=== PATIENT | male | born 1990 | race Caucasian/White ===

== ENCOUNTER 2019-04-27 18:25 | Emergency (ER) | payer OTHER, SELFPAY ==
[2019-04-27 18:37] VITALS: BP 122/83; PULSE 62; RESP 16; TEMP 36.6; O2SAT 95
[2019-04-27 19:09] LABS: Add Manual Diff / Slide Review NO; Basophils Absolute Auto 100 /uL (0-100); Basophils Percent Auto 0.6 % (0-2); Eosinophils Absolute Auto 100 /uL (0-450); Eosinophils Percent Auto 1.3 % (2-4); Hematocrit 45.1 % (41-53); Hemoglobin 15.4 g/dL (13.5-17.5); Lymphocytes Absolute Auto 1400 /uL (1100-4500); Lymphocytes Percent Auto 12.3 % (25-40); Mean Corpuscular HGB Conc 34.2 % (30-36); Mean Corpuscular Hemoglobin 30.9 PG (26-34); Mean Corpuscular Volume 90.2 fL (80-100); Monocytes Absolute Auto 600 /uL (0-900); Monocytes Percent Auto 5.8 % (3-14); Neutrophils Absolute Auto 9000 /uL (1500-7000); Platelet Count 246 X10^3/uL (150-400); Red Cell Distribution Width 13.2 % (11.6-14.8); White Blood Cell Count 11.2 X10^3/uL (4.5-11.0)
[2019-04-27 19:18] LABS: INR 0.9 (0.9-1.3); Prothrombin Time 10.8 SECONDS (10.1-12.7)
[2019-04-27 19:21] LABS: PTT Partial Thromboplastin Tim 30 SECONDS (26.4-36.2)
[2019-04-27 19:22] LABS: Alanine Aminotransferase 48 IU/L (21-72); Albumin 4.4 g/dL (3.5-5.0); Albumin Globulin Ratio 1.4 (1.0-2.8); Alkaline Phosphatase 45 U/L (38-126); Aspartate Aminotransferase 55 IU/L (17-59); BUN Creatinine Ratio 23.8 (6-22); Bilirubin Total 0.5 mg/dL (0.2-1.3); Blood Urea Nitrogen 19 mg/dL (9-20); Calcium 9.5 mg/dL (8.4-10.2); Carbon Dioxide 32 mmol/L (22-32); Chloride 98 mmol/L (98-107); Estimated Glomerular Filt Rate > 60.0 mL/min (>60); Globulin 3.2 g/dL (1.7-4.1); Glucose 133 mg/dL (70-100); HEMOLYSIS < 15 (0-50); Lipase 33 U/L (23-300); Potassium 3.7 mmol/L (3.4-5.1); Sodium 140 mmol/L (137-145); Total Protein 7.6 g/dL (6.3-8.2)
--- NOTE | 2019-04-27 19:22 | ED_ITS ---
HPI - Abdominal Pain General Chief Complaint: Abdominal Pain Stated Complaint: pain in stomach with vomiting and diarrhea Time Seen by Provider: 04/27/19 19:22 Source: patient Mode of arrival: ambulatory Limitations: no limitations History of Present Illness HPI narrative: Patient is a 29-year-old male who for the past several days has had left-sided abdominal tenderness. He also has developed multiple episodes of vomiting and diarrhea. Her earlier today he felt like his symptoms worsen. [place] [employer] [place] did a x-ray. This was not available for review. They started him on MiraLax. He states that throughout the rest the day he is felt like he needed to have a bowel movement but can't. Has fairly significant left-sided abdominal tenderness. No recent travel. No recent antibiotics use. No prior abdominal surgeries. Related Data Previous Rx's Medication Instructions Recorded acetaminophen-codeine 1 tab PO Q4-6H PRN #7 tab 04/27/19 [Tylenol-Codeine #3] ondansetron 4 mg PO Q6-8H PRN #10 tab 04/27/19 Allergies Allergy/AdvReac Type Severity Reaction Status Date / Time No Known Drug Allergies Allergy Verified 04/27/19 18:37 Review of Systems Constitutional Denies fever(s) and Denies headache(s) ENT Ears, Nose, Mouth, and Throat: Denies headache(s) Cardiovascular Denies chest pain and Denies dyspnea Respiratory Denies dyspnea Gastrointestinal Gastrointestinal: Reports abdominal pain, Reports change in stool character, Reports nausea and Reports vomiting Genitourinary Denies dysuria Musculoskeletal Denies myalgias and Denies arthralgias Integumentary/Breasts Denies lesions and Denies rash Neurologic Denies headache(s) Hematologic/Lymphatic Denies easy bleeding and Denies easy bruising Allergic/Immunologic Denies urticaria [facility] Medical History Patient denies medical problems (Acute) Surgical History No pertinent past surgical history (Acute) Social History Smoking Status: Current every day smoker Social History Smoking Status: Current every day smoker Exam Initial Vital Signs Initial Vital Signs: Vital Signs Temperature 97.9 F 04/27/19 18:37 Pulse Rate 62 04/27/19 18:37 Respiratory Rate 16 04/27/19 18:37 Blood Pressure 122/83 04/27/19 18:37 Pulse Oximetry 95 04/27/19 18:37 Const General: cooperative, well developed, well groomed and No acute distress Orientation: alert and awake HENMT Head: normal to inspection and normocephalic Resp Effort & Inspection: normal respiratory effort Auscultation: clear to auscultation bilaterally Cardio Rate: regular rate Rhythm: regular rhythm GI Inspection: non-distended Palpation: soft, No firm, No guarding and tender (Left-sided abdomen) Skin Lesions: no lesions Rashes: no rashes Neuro General: alert and awake Cognition: normal cognition Speech: speech normal Extrem General: normal to inspection and capillary refill normal Course Orders Ordered: ED Orders 04/27/19 18:42 EKG-12 Lead Stat 04/27/19 18:50 Complete Blood Count AUTO DIFF Stat Comprehensive Metabolic Panel Stat Lipase Stat Partial Thromboplastin Time Stat Prothrombin Time INR Stat 04/27/19 19:34 CT abdomen pelvis w con Stat Discontinued Medications Acetaminophen/Codeine Phosphate (Tylenol #3 Prepack) 1 bottle MISC SEEINSTR ONE Stop: 04/27/19 21:03 Last Admin: 04/27/19 21:21 Dose: 1 bottle Sodium Chloride (Normal Saline 0.9%) 1,000 mls @ 1,000 mls/hr IV BOLUS ONE Stop: 04/27/19 20:33 Last Infusion: 04/27/19 20:53 Dose: 0 mls/hr Admin: 04/27/19 19:45 Dose: 1,000 mls/hr Morphine Sulfate (Morphine) 4 mg IV NOW ONE Stop: 04/27/19 19:34 Last Admin: 04/27/19 19:43 Dose: 4 mg Ondansetron HCl (Zofran) 4 mg IV NOW ONE Stop: 04/27/19 19:34 Last Admin: 04/27/19 19:43 Dose: 4 mg Ondansetron HCl (Zofran Odt Prepack) 1 bottle MISC SEEINSTR ONE Stop: 04/27/19 21:03 Last Admin: 04/27/19 21:21 Dose: 1 bottle Vital Signs - 8 hr 04/27/19 18:37 04/27/19 21:23 Temperature 97.9 F Pulse Rate 62 69 Respiratory Rate 16 15 Blood Pressure 122/83 118/77 Pulse Oximetry 95 96 MDM - Abdominal Pain Lab Data Attestation: I reviewed the patient's lab results. Result diagrams: 04/27/19 18:50 04/27/19 18:50 Lab Results 04/27/19 04/27/19 04/27/19 Range/Units 18:50 18:50 18:50 WBC 11.2 H (4.5-11.0) X10^3/uL RBC 5.00 (4.5-5.9) X10^6/uL Hgb 15.4 (13.5-17.5) g/dL Hct 45.1 (41-53) % MCV 90.2 (80-100) fL MCH 30.9 (26-34) PG MCHC 34.2 (30-36) % RDW 13.2 (11.6-14.8) % Plt Count 246 (150-400) X10^3/uL Neut % (Auto) 80.0 H (50-75) % Lymph % (Auto) 12.3 L (25-40) % [place] % (Auto) 5.8 (3-14) % Eos % (Auto) 1.3 L (2-4) % Baso % (Auto) 0.6 (0-2) % Neut # (Auto) 9000 H (2996-2570) /uL Lymph # (Auto) 1400 (2922-7808) /uL [place] # (Auto) 600 (0-900) /uL Eos # (Auto) 100 (0-450) /uL Baso # (Auto) 100 (0-100) /uL PT 10.8 (10.1-12.7) SECONDS INR 0.9 (0.9-1.3) APTT 30 (26.4-36.2) SECONDS Sodium 140 (137-145) mmol/L Potassium 3.7 (3.4-5.1) mmol/L Chloride 98 (98-107) mmol/L Carbon Dioxide 32 (22-32) mmol/L BUN 19 (9-20) mg/dL Creatinine 0.80 (0.66-1.25) mg/dL Estimated GFR > 60.0 (>60) mL/min BUN/Creatinine Ratio 23.8 H (6-22) Glucose 133 H (70-100) mg/dL Calcium 9.5 (8.4-10.2) mg/dL Total Bilirubin 0.5 (0.2-1.3) mg/dL AST 55 (17-59) IU/L ALT 48 (21-72) IU/L Alkaline Phosphatase 45 (38-126) U/L Total Protein 7.6 (6.3-8.2) g/dL Albumin 4.4 (3.5-5.0) g/dL Globulin 3.2 (1.7-4.1) g/dL Albumin/Globulin Ratio 1.4 (1.0-2.8) Lipase 33 (23-300) U/L Imaging Data CT scan - abdomen: Radiologist's impression: [address] [address] [address] Scan Report Signed Patient: Mark Lamb JMR#: [id number] : 1990Acct:[id number] Age/Sex: MDate of Service: 04/27/19 Loc: ED Accession Number: [id number] Procedure: CT abdomen pelvis w con Ordering Provider: Blaine Peraza D.O. PROCEDURE: CT ABDOMEN PELVIS W CON INDICATIONS: Left-sided abdominal pain TECHNIQUE: After the administration of intravenous contrast, 5 mm thick sections acquired from the diaphragm to the symphysis. 5 mm coronal and sagittal reformats were acquired. For radiation dose reduction, the following was used: automated exposure control, adjustment of mA and/or kV according to patient size. COMPARISON: None. FINDINGS: Image quality: Excellent. ABDOMEN: Lung bases: Lung bases are clear. Heart size is normal. Solid organs: Liver is normal in size and enhancement. Gallbladder unremarkable. Biliary system is non dilated. Pancreas enhances normally. Spleen is normal in size and enhancement. No adrenal nodules. Kidneys demonstrate normal size and enhancement, without hydronephrosis. Peritoneum and bowel: There is diffuse long segment wall thickening primarily involving the descending colon. There is minimal adjacent fat stranding. There are also a few scattered small bowel loops with mural thickening for example image 40 series 2. No free fluid or air. The appendix is within normal limits Nodes and vessels: No retroperitoneal or mesenteric adenopathy by size criteria. Aorta and inferior vena cava are normal in size. Miscellaneous: No ventral hernias. PELVIS: Genitourinary: Bladder wall thickness is normal. Miscellaneous: No inguinal hernias or adenopathy. Bones: No suspicious bony lesions. No vertebral body compression fractures. IMPRESSION: Diffuse long segment descending colonic wall thickening in addition to a few small bowel loops with mural thickening. Findings likely represent infectious or inflammatory enterocolitis. Elsewhere, no acute abnormality seen. Dictated by: Ming Miller M.D. on 04/27/2019 at 20:06 Approved by: Ming Miller M.D. on 04/27/2019 at 20:09 ECG Data Attestation: I personally reviewed and interpreted this ECG as follows: Prior ECG tracings: not available for review Interpretation: Sinus bradycardia Ventricular rate of 59 Normal axis Normal QRS Normal QTC No ST T wave changes MDM Narrative Medical decision making narrative: CT scan shows no emergent surgical pathology. Shows what appears to be an inflammatory colitis. He is afebrile. Will hold on any antibiotics. Will send home with symptom treatment. We did discuss his CT scan findings. No indication for admission to the hospital. He was given return precautions. He expressed understanding and agreement with plan. Discharge Plan Departure Patient Disposition: Home Clinical Impression: Colitis Abdominal pain Qualifiers: Abdominal location: left lower quadrant Qualified Code(s): R10.32 - Left lower quadrant pain Discharge Date/Time: 04/27/19 21:24 Interventions: ED Discharge Assessment Last Done: 04/27/19 21:23 Instructions: DI for Abdominal Pain-Adult Activity Restrictions/Additional Instructions: Take the medications as directed. Tomorrow keep your appointment with your primary provider. Return to the emergency department for any new or worsening symptoms like we discussed. Prescriptions: New acetaminophen-codeine [Tylenol-Codeine #3] 300-30 mg tablet 1 tab PO Q4-6H PRN (Reason: pain) Qty: 7 RF: 0 ondansetron 4 mg tablet,disintegrating 4 mg PO Q6-8H PRN (Reason: nausea and vomiting) Qty: 10 RF: 0 Stand Alone Forms: Work Release Note
--- NOTE | 2019-04-27 19:34 | DI.CT.S_ITS ---
PROCEDURE: CT ABDOMEN PELVIS W CON INDICATIONS: Left-sided abdominal pain TECHNIQUE: After the administration of intravenous contrast, 5 mm thick sections acquired from the diaphragm to the symphysis. 5 mm coronal and sagittal reformats were acquired. For radiation dose reduction, the following was used: automated exposure control, adjustment of mA and/or kV according to patient size. COMPARISON: None. FINDINGS: Image quality: Excellent. ABDOMEN: Lung bases: Lung bases are clear. Heart size is normal. Solid organs: Liver is normal in size and enhancement. Gallbladder unremarkable. Biliary system is non dilated. Pancreas enhances normally. Spleen is normal in size and enhancement. No adrenal nodules. Kidneys demonstrate normal size and enhancement, without hydronephrosis. Peritoneum and bowel: There is diffuse long segment wall thickening primarily involving the descending colon. There is minimal adjacent fat stranding. There are also a few scattered small bowel loops with mural thickening for example image 40 series 2. No free fluid or air. The appendix is within normal limits Nodes and vessels: No retroperitoneal or mesenteric adenopathy by size criteria. Aorta and inferior vena cava are normal in size. Miscellaneous: No ventral hernias. PELVIS: Genitourinary: Bladder wall thickness is normal. Miscellaneous: No inguinal hernias or adenopathy. Bones: No suspicious bony lesions. No vertebral body compression fractures. IMPRESSION: Diffuse long segment descending colonic wall thickening in addition to a few small bowel loops with mural thickening. Findings likely represent infectious or inflammatory enterocolitis. Elsewhere, no acute abnormality seen. Dictated by: Ming Miller M.D. on 04/27/2019 at 20:06 Approved by: Ming Miller M.D. on 04/27/2019 at 20:09
[2019-04-27] MEDS: ONDANSETRON 4 MG/2 ML INJ IV (19:43)
[2019-04-27] MEDS: MORPHINE 4 MG/ML INJ IV (19:43)
[2019-04-27] MEDS: SODIUM CHLORIDE 0.9% 1,000 ML 1000 ML IV (19:45)
[2019-04-27] MEDS: CODEINE/APAP 30/300 PREPACK 1 BOTTLE MISC (21:21)
[2019-04-27] MEDS: ONDANSETRON 4 MG ODT PREPACK 1 BOTTLE MISC (21:21)
[2019-04-27 21:23] VITALS: BP 118/77; PULSE 69; RESP 15; O2SAT 96
== END 2019-04-27 21:24 | disposition home or self-care (01) ==
PROVIDERS: Emergency Provider Emergency Medicine
DX: K52.9 Noninfective gastroenteritis and colitis, unspecified (principal); R10.9 Unspecified abdominal pain; R00.1 Bradycardia, unspecified
CPT/HCPCS: 36591; 74177; 80053; 83690; 85025; 85610; 85730; 93005; 96361; 96374; 96375; 99283; 99285; J2270; J2405; Q9967

== ENCOUNTER 2019-07-01 16:28 | Emergency (ER) | payer OTHER, SELFPAY ==
[2019-07-01 16:34] VITALS: BP 145/78; PULSE 90; RESP 20; TEMP 36.6; O2SAT 98
[2019-07-01 16:36] VITALS: BP 148/75; PULSE 90; RESP 20; TEMP 36.6; O2SAT 98
--- NOTE | 2019-07-01 16:38 | ED_ITS ---
HPI - Extremity Injury (Lower) <Flora Narayanan PA-C - Last Filed: 07/01/19 19:33> General Chief Complaint: Extremity Injury, Lower Stated Complaint: Right ankle injury playing foot ball Time Seen by Provider: 07/01/19 16:37 Source: patient Mode of arrival: ambulatory Limitations: physical limitation History of Present Illness HPI Narrative: This 29-year-old male jumped up to catch a football about 2 hours ago and came down on his left foot and ankle awkwardly, heard a loud snap. Since then, unable to move the foot due to severe pain. He thinks he came down ?diagonally on the foot, more on the toes ?and then rolled outward. He denies any other injury, denies pain in the knee or upper leg, states pain radiates from the foot up into the lower ankle and lateral lyles area. He last had water about 2 hours ago, ate at 10:00 a.m.. Related Data Previous Rx's Medication Instructions Recorded acetaminophen-codeine 1 tab PO Q4-6H PRN #7 tab 04/27/19 [Tylenol-Codeine #3] ondansetron 4 mg PO Q6-8H PRN #10 tab 04/27/19 ibuprofen 800 mg PO Q8H PRN #30 tab 07/01/19 oxycodone-acetaminophen [Percocet] 1 tab PO Q4-6H PRN #5 tab 07/01/19 Allergies Allergy/AdvReac Type Severity Reaction Status Date / Time No Known Drug Allergies Allergy Verified 04/27/19 18:37 Review of Systems <Flora Narayanan PA-C - Last Filed: 07/01/19 19:33> Review of Systems ROS Unobtainable: All systems reviewed & are unremarkable except as noted in HPI and below PFSH <Flora Narayanan PA-C - Last Filed: 07/01/19 19:33> Medical History Patient denies medical problems (Acute) Surgical History No pertinent past surgical history (Acute) Social History Smoking Status: Current every day smoker Social History Smoking Status: Current every day smoker Exam <Flora Narayanan PA-C - Last Filed: 07/01/19 19:33> Narrative Exam Narrative: GENERAL APPEARANCE: Patient sitting comfortably, in no distress. LUNGS: Clear to auscultation bilaterally. HEART: Rate and rhythm regular without murmur, normal S1 and S2, no S3 or S4. MUSCULOSKELETAL: Tender throughout the right foot and ankle, nonlocalized. Effusion over the right proximal foot and ankle noted more on the lateral side. Patient holds the ankle deviated medially, will not perform ROM secondary to tenderness, he is able to slightly dorsiflex and plantar flex the toes with strength intact against resistance, tender with this action. Achilles is intact by palpation. No tenderness over the lower leg or knee NEUROVASCULAR: Right foot is warm and pink with 2+ pedal pulse, sensation grossly intact Initial Vital Signs Initial Vital Signs: Vital Signs Temperature 97.8 F 07/01/19 16:34 Pulse Rate 90 07/01/19 16:34 Respiratory Rate 20 07/01/19 16:34 Blood Pressure 145/78 H 07/01/19 16:34 Pulse Oximetry 98 07/01/19 16:34 <Jim Smith DO - Last Filed: 07/02/19 07:33> Initial Vital Signs Initial Vital Signs: Vital Signs Temperature 97.8 F 07/01/19 16:34 Pulse Rate 90 07/01/19 16:34 Respiratory Rate 20 07/01/19 16:34 Blood Pressure 145/78 H 07/01/19 16:34 Pulse Oximetry 98 07/01/19 16:34 Course <Flora Narayanan PA-C - Last Filed: 07/01/19 19:33> Orders Ordered: Discontinued Medications Ibuprofen (Advil) 800 mg PO NOW ONE Stop: 07/01/19 16:45 Last Admin: 07/01/19 16:52 Dose: 800 mg Oxycodone/Acetaminophen (Percocet 5/325) 2 tab PO NOW ONE Stop: 07/01/19 16:45 Last Admin: 07/01/19 16:52 Dose: 2 tab Vital Signs - 8 hr 07/01/19 16:34 07/01/19 16:36 07/01/19 18:02 Temperature 97.8 F 97.8 F Pulse Rate 90 90 68 Respiratory Rate 20 20 15 Blood Pressure 148/75 H Blood Pressure [Left Arm] 145/78 H 118/66 Pulse Oximetry 98 98 100 <Jim Smith DO - Last Filed: 07/02/19 07:33> Orders Ordered: Discontinued Medications Ibuprofen (Advil) 800 mg PO NOW ONE Stop: 07/01/19 16:45 Last Admin: 07/01/19 16:52 Dose: 800 mg Oxycodone/Acetaminophen (Percocet 5/325) 2 tab PO NOW ONE Stop: 07/01/19 16:45 Last Admin: 07/01/19 16:52 Dose: 2 tab Vital Signs - 8 hr 07/01/19 16:34 07/01/19 16:36 07/01/19 18:02 Temperature 97.8 F 97.8 F Pulse Rate 90 90 68 Respiratory Rate 20 20 15 Blood Pressure 148/75 H Blood Pressure [Left Arm] 145/78 H 118/66 Pulse Oximetry 98 98 100 MDM - Extremity Injury (Lower) <Flora Narayanan PA-C - Last Filed: 07/01/19 19:33> Imaging Data foot and ankle: Radiologist's impression: [place] [address] XRay Report Signed Patient: Mark Lamb JMR#: [id number] : 1990Acct:[id number] Age/Sex: 29 / MDate of Service: 07/01/19 Loc: ED Accession Number: [id number] Procedure: XR ankle RT min 3V Ordering Provider: Jim Smith D.O. PROCEDURE: XR ANKLE RT MIN 3V INDICATIONS: injury with swelling TECHNIQUE: 3 views of the ankle were acquired. COMPARISON: None. FINDINGS: Bones: There is a nondisplaced fifth metatarsal base fracture. No additional fractures are present. There is no dislocation. Ankle mortise is normally aligned. No suspicious bony lesions. Soft tissues: There may be a small tibiotalar joint effusion. Prominent soft tissue swelling along the lateral aspect of the ankle is present. IMPRESSION: 1. Nondisplaced fifth metatarsal base fracture. 2. Soft tissue swelling overlying the lateral aspect of the ankle. Dictated by: Young Cervantes M.D. on 07/01/2019 at 16:15 Approved by: Young Cervantes M.D. on 07/01/2019 at 16:[address] [address] XRay Report Signed Patient: Mark Lamb JMR#: [id number] : 1990Acct:[id number] Age/Sex: 29 / MDate of Service: 07/01/19 Loc: ED Accession Number: [id number] Procedure: XR foot RT min 3V Ordering Provider: Flora Narayanan P.A-C PROCEDURE: XR FOOT RT MIN 3V INDICATIONS: pain after fall, deformity TECHNIQUE: 3 views of the foot were acquired. COMPARISON: [facility], CR, XR ANKLE RT MIN 3V, 07/01/2019, 17:02. FINDINGS: Bones: There is a nondisplaced fracture involving the base of the fifth metatarsal. No additional fractures are present. No suspicious osseous lesions are identified. Mild degenerative changes are present involving the first metatarsophalangeal joint. Soft tissues: There is a small ankle effusion. Prominent soft tissue swelling about the lateral margin of the ankle is present. IMPRESSION: 1. Nondisplaced fifth metatarsal base fracture. 2. Prominent soft tissue swelling of the lateral aspect of the ankle. Discharge Plan Departure Patient Disposition: Home Clinical Impression: Fracture of fifth metatarsal bone of right foot Qualifiers: Encounter type: initial encounter Fracture type: closed Fracture alignment: nondisplaced Qualified Code(s): S92.354A - Nondisplaced fracture of fifth metatarsal bone, right foot, initial encounter for closed fracture Discharge Date/Time: 07/01/19 18:40 Interventions: ED Discharge Assessment Last Done: 07/01/19 18:40 Instructions: DI for Foot Fracture, DI for Ankle Sprain Activity Restrictions/Additional Instructions: As we talked about, you should return if you have any acutely worsening symptoms over the weekend. It was difficult to examine your foot and ankle today due to your acute swelling and pain. You do have a small break on the outside bone of your foot. It is not out of place. You do not have any apparent ankle break but given the mechanism you likely sprained that ankle as well. You should be in the walking boot whenever you are bearing weight, and also use the crutches as needed. Take ibuprofen 800 mg every 8 hours, and you can take oxy codone/acetaminophen as needed for tonight and tomorrow for the acute pain. Please follow up with your primary care provider in a few days to reassess when the acute pain and swelling are down. You may need repeat x-rays or further studies in a week or so not improving as expected Prescriptions: New ibuprofen 800 mg tablet 800 mg PO Q8H PRN (Reason: pain) Qty: 30 RF: 0 oxycodone-acetaminophen [Percocet] 5-325 mg tablet 1 tab PO Q4-6H PRN (Reason: acute foot fracture pain) Qty: 5 RF: 0 No Action acetaminophen-codeine [Tylenol-Codeine #3] 300-30 mg tablet 1 tab PO Q4-6H PRN (Reason: pain) Qty: 7 RF: 0 ondansetron 4 mg tablet,disintegrating 4 mg PO Q6-8H PRN (Reason: nausea and vomiting) Qty: 10 RF: 0 Referrals: [facility] [Provider Group] Stand Alone Forms: Work Release Note <Jim Smith DO - Last Filed: 07/02/19 07:33> Cosign ED Attending Adeolaature Attestation: I was immediately available in the department for consultation. Documentation has been reviewed. I agree with assessment and plan.
--- NOTE | 2019-07-01 16:44 | DI.RAD.S_ITS ---
PROCEDURE: XR FOOT RT MIN 3V INDICATIONS: pain after fall, deformity TECHNIQUE: 3 views of the foot were acquired. COMPARISON: [facility], CR, XR ANKLE RT MIN 3V, 07/01/2019, 17:02. FINDINGS: Bones: There is a nondisplaced fracture involving the base of the fifth metatarsal. No additional fractures are present. No suspicious osseous lesions are identified. Mild degenerative changes are present involving the first metatarsophalangeal joint. Soft tissues: There is a small ankle effusion. Prominent soft tissue swelling about the lateral margin of the ankle is present. IMPRESSION: 1. Nondisplaced fifth metatarsal base fracture. 2. Prominent soft tissue swelling of the lateral aspect of the ankle. Dictated by: Young Cervantes M.D. on 07/01/2019 at 16:14 Approved by: Young Cervantes M.D. on 07/01/2019 at 16:15
[2019-07-01] MEDS: OXYCODONE/ACETAMINOPHEN 5/325 TABLET 2 TAB PO (16:52)
[2019-07-01] MEDS: IBUPROFEN 400 MG TABLET 800 MG PO (16:52)
[2019-07-01 18:02] VITALS: BP 118/66; PULSE 68; RESP 15; O2SAT 100
== END 2019-07-01 18:40 | disposition home or self-care (01) ==
PROVIDERS: Emergency Provider Internal Medicine
DX: S92.354A Nondisplaced fracture of fifth metatarsal bone, right foot, initial encounter for closed fracture (principal); X50.9XXA Other and unspecified overexertion or strenuous movements or postures, initial encounter; Y93.61 Activity, american tackle football
CPT/HCPCS: 73610; 73630; 99283

== ENCOUNTER 2019-07-07 10:26 | Emergency (ER) | payer OTHER, SELFPAY ==
[2019-07-07 10:33] VITALS: BP 145/68; PULSE 85; RESP 16; TEMP 36.5; O2SAT 100
--- NOTE | 2019-07-07 11:14 | ED.LOWEXIN ---
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 Approximately 1 week ago he sustained a fracture to his right foot. Was seen here in this emergency department. Was sent home with crutches and a walking boot. Since then he has seen his medical department over on the [facility]. He also seen Orthopedics on the [facility]. He had repeat x-rays at that facility. Per his report he was told that he has a non operative fracture. He stated that he was told by Orthopedics that he could start to put some weight on his foot as tolerated. He arrives today with a walking boot and crutches. He states that he has not had any pain medication for the past couple days because he was only given a prescription for 5 tablets by his medical department. Related Data Home Medications Medication Instructions Recorded Confirmed acetaminophen 650 mg PO QID PRN 07/07/19 07/07/19 hydrocodone-acetaminophen 1 tab PO BID PRN 07/07/19 07/07/19 Previous Rx's Medication Instructions Recorded ibuprofen 800 mg PO Q8H PRN #30 tab 07/01/19 oxycodone-acetaminophen [Percocet] 1 tab PO Q4-6H PRN #20 tab 07/07/19 Allergies Allergy/AdvReac Type Severity Reaction Status Date / Time No Known Drug Allergies Allergy Verified 07/07/19 10:36 Review of Systems Constitutional Denies fever(s) Cardiovascular Denies chest pain and Denies dyspnea Respiratory Denies dyspnea Gastrointestinal Gastrointestinal: Denies abdominal pain, Denies nausea and Denies vomiting Musculoskeletal Denies tingling Comments: Right foot pain Integumentary/Breasts Comments: Bruising to the right foot Neurologic Denies tingling Hematologic/Lymphatic Denies easy bleeding and Denies easy bruising PFSH Medical History Patient denies medical problems (Acute) Social History Smoking Status: Current every day smoker Exam Initial Vital Signs Initial Vital Signs: Vital Signs Temperature 97.7 F 07/07/19 10:33 Pulse Rate 85 07/07/19 10:33 Respiratory Rate 16 07/07/19 10:33 Blood Pressure 145/68 H 07/07/19 10:33 Pulse Oximetry 100 07/07/19 10:33 Const General: cooperative, well developed and well groomed Orientation: alert, awake and oriented x3 HENMT Head: normal to inspection and normocephalic Resp Effort & Inspection: normal respiratory effort Cardio Pulses: radial pulses present on the right Skin Other: Patient with bruising on the lateral aspect of the right ankle. Bruising along the toes. Swelling of the right foot. Some mild bruising proximal to the ankle laterally. Neuro Other: Sensation intact to light touch right foot Extrem Other: Tenderness to palpation of the right foot the right ankle in the distal portion of the right lower extremity Psych Appearance: grossly normal and well kempt Course Orders Ordered: Discontinued Medications Hydromorphone HCl (Dilaudid) 1 mg IM NOW ONE Stop: 07/07/19 11:15 Last Admin: 07/07/19 11:21 Dose: 1 mg Vital Signs - 8 hr 07/07/19 10:33 07/07/19 12:06 Temperature 97.7 F Pulse Rate 85 74 Respiratory Rate 16 14 Blood Pressure 145/68 H 127/74 Pulse Oximetry 100 98 [facility] - Extremity Injury (Lower) Medical Records Attestation: I reviewed the patient's medical records. [facility] Narrative Medical decision making narrative: Patient has no signs of compartment syndrome. Is neurovascularly intact. His foot appears is what I would expect to look like 1 week after this injury. He has a walking boot and also crutches. I do suspect that his symptoms are the result of not having proper pain control. He stated he only received 5 pills of medication here in the emergency department and then another 5 pills by his medical department. He was given medicines here in the ER. Will send home with a prescription for more medicines. He has already [place] Will hold on further workup. Was given return precautions and follow-up instructions. He expressed understanding and agreement plan. Discharge Plan Departure Patient Disposition: Home Clinical Impression: Fracture of fifth metatarsal bone of right foot Qualifiers: Encounter type: subsequent encounter Fracture type: closed Discharge Date/Time: 07/07/19 12:06 Interventions: ED Discharge Assessment Last Done: 07/07/19 12:06 Instructions: DI for Foot Fracture Activity Restrictions/Additional Instructions: Recommend that you continue all of the instructions given to you by your medical department and [place]. Take the pain medications as directed. On Wednesday contact your medical department for follow-up. Return to the emergency department for any new or worsening symptoms Prescriptions: New oxycodone-acetaminophen [Percocet] 5-325 mg tablet 1 tab PO Q4-6H PRN (Reason: pain) Qty: 20 RF: 0 No Action acetaminophen 325 mg tablet 650 mg PO QID PRN (Reason: pain) RF: 0 hydrocodone-acetaminophen 5-325 mg tablet 1 tab PO BID PRN (Reason: pain) RF: 0 ibuprofen 800 mg tablet 800 mg PO Q8H PRN (Reason: pain) Qty: 30 RF: 0
[2019-07-07] MEDS: HYDROMORPHONE 1 MG INJ IM (11:21)
[2019-07-07 12:06] VITALS: BP 127/74; PULSE 74; RESP 14; O2SAT 98
== END 2019-07-07 12:06 | disposition home or self-care (01) ==
PROVIDERS: Emergency Provider Emergency Medicine
DX: S92.911A Unspecified fracture of right toe(s), initial encounter for closed fracture (principal)
CPT/HCPCS: 96372; 99282; J1170

== ENCOUNTER 2020-01-09 18:39 | Emergency (ER) | payer OTHER, SELFPAY ==
[2020-01-09 18:43] VITALS: BP 138/89; PULSE 67; RESP 20; TEMP 36.6; O2SAT 98
[2020-01-09] MEDS: ONDANSETRON 4 MG ODT SL ×2 (19:00→21:20)
[2020-01-09] MEDS: KETOROLAC 60 MG/2 ML VIAL 30 MG IM (19:01)
--- NOTE | 2020-01-09 19:27 | ED.HA ---
HPI - Headache <MARISSA Nelson - Last Filed: 01/09/20 21:12> General Chief Complaint: Headache Stated Complaint: states migraine Time Seen by Provider: 01/09/20 18:49 Mode of arrival: Ambulatory History of Present Illness HPI Narrative: 29-year-old male with a history of migraines presents to the emergency department complaining of a migraine on the right side for the past 4 hours with phonophobia, photophobia, nausea, and vomiting. He states this is similar to his headache in the past. Patient states he has tried p.o. Excedrin at home but often vomits this up. Patient denies any abdominal pain, vision changes, neck pain, change in speech, chest pain, shortness of breath, diarrhea, or other concerns. Patient states he usually gets ketorolac which helps with his pain. NO head trauma. Related Data Home Medications Medication Instructions Recorded Confirmed acetaminophen 650 mg PO QID PRN 07/07/19 07/07/19 hydrocodone-acetaminophen 1 tab PO BID PRN 07/07/19 07/07/19 Previous Rx's Medication Instructions Recorded ibuprofen 800 mg PO Q8H PRN #30 tab 07/01/19 oxycodone-acetaminophen [Percocet] 1 tab PO Q4-6H PRN #20 tab 07/07/19 ketorolac 10 mg PO Q6H PRN 5 Days #10 tab 01/09/20 metoclopramide HCl [Reglan] 10 mg PO Q6H PRN #20 tab 01/09/20 ondansetron 4 mg PO Q6H #20 tab 01/09/20 Allergies Allergy/AdvReac Type Severity Reaction Status Date / Time No Known Drug Allergies Allergy Verified 07/07/19 10:36 Review of Systems <MARISSA Nelson - Last Filed: 01/09/20 21:12> Review of Systems Narrative: REVIEW OF SYSTEMS: GENERAL: Denies fever or chills. HENT: Complains of headache, see HPI. EYES: No loss of vision, double vision, eye pain, or irritation. CARDIOVASCULAR: No chest pain or syncope. RESPIRATORY: No shortness of breath or cough. GASTROINTESTINAL: Reports vomiting, see HPI. GENITOURINARY: No flank pain or dysuria. MUSCULOSKELETAL: No pain, weakness, or deformities. INTEGUMENTARY: No rash, lesions, or pruritus. NEURO: No numbness, tingling, memory loss, or confusion. PSYCH: No behavior or mood changes. Patient History <MARISSA Nelson - Last Filed: 01/09/20 21:12> Medical History Patient denies medical problems (Acute) Surgical History No pertinent past surgical history (Acute) Social History Smoking Status: Current every day smoker Smoking Status: Current every day smoker alcohol intake frequency: other Substance Use Type: does not use Exam <MARISSA Nelson - Last Filed: 01/09/20 21:12> Initial Vital Signs Initial Vital Signs: Vital Signs Temperature 97.9 F 01/09/20 18:43 Pulse Rate 67 01/09/20 18:43 Respiratory Rate 20 01/09/20 18:43 Blood Pressure 138/89 01/09/20 18:43 Pulse Oximetry 98 01/09/20 18:43 PHYSICAL EXAMINATION: GENERAL: Well groomed, alert, and cooperative. Answers questions promptly and appropriately. Vital signs noted. HENT: Normocephalic, atraumatic. Ear canals patent. Oral mucosa is pink and moist. EYES: Conjunctiva pink, sclera white, no periorbital swelling. It is apparent that patient has photophobia CHEST: Normal to inspection and without deformities. CARDIOVASCULAR: S1 and S2 sounds normal. Regular rate and rhythm, no murmurs, clicks, or bruits. No pedal edema. RESPIRATORY: Normal respiratory rate, trachea midline, airway patent. No stridor, nasal flaring or accessory muscle use. Lungs are clear in all conti without wheeze, rhonchi, or crackles. GASTROINTESTINAL: Bowel sounds normoactive. Abdomen is soft and non-tender. No organomegaly. MUSCULOSKELETAL: Normal gait and coordination. Equal tone and mass bilaterally. EXTREMITIES: CMS intact. Moves all extremities. SKIN: Warm, dry, soft, appropriate color for ethnicity. No lesions, rashes, or wounds. NEURO: Alert and Oriented X 3. Good coordination. CN III-XIII, No ataxia, or sensory deficits, or cognitive issues. PSYCH: Appropriate affect and mood. <Elly Ulrich DO - Last Filed: 01/10/20 00:16> Initial Vital Signs Initial Vital Signs: Vital Signs Temperature 97.9 F 01/09/20 18:43 Pulse Rate 67 01/09/20 18:43 Respiratory Rate 20 01/09/20 18:43 Blood Pressure 138/89 01/09/20 18:43 Pulse Oximetry 98 01/09/20 18:43 Course <MARISSA Nelson - Last Filed: 01/09/20 21:12> Course Course Narrative: Patient was given ondansetron and Toradol, no relief with this medication. IV was started and patient was given flluids, Benadryl and Reglan which in if slightly improved symptoms. Orders Ordered: Discontinued Medications Diphenhydramine HCl (Benadryl) 25 mg IV NOW ONE Stop: 01/09/20 20:09 Last Admin: 01/09/20 20:19 Dose: 25 mg Documented by: KAYLEY Sodium Chloride (Normal Saline 0.9%) 1,000 mls @ 1,000 mls/hr IV BOLUS PRN PRN Reason: Fluid replacement Last Infusion: 01/09/20 21:20 Dose: 0 mls/hr Documented by: Admin: 01/09/20 20:19 Dose: 1,000 mls/hr Documented by: KAYLEY Ketorolac Tromethamine (Toradol) 30 mg IM NOW ONE Stop: 01/09/20 18:57 Last Admin: 01/09/20 19:01 Dose: 30 mg Documented by: MELY Metoclopramide HCl (Reglan) 10 mg IV NOW ONE Stop: 01/09/20 20:09 Last Admin: 01/09/20 20:19 Dose: 10 mg Documented by: KAYLEY Ondansetron HCl (Zofran Odt) 4 mg SL NOW ONE Stop: 01/09/20 18:57 Last Admin: 01/09/20 19:00 Dose: 4 mg Documented by: MELY Ondansetron HCl (Zofran Odt) 4 mg SL NOW ONE Stop: 01/09/20 21:11 Last Admin: 01/09/20 21:20 Dose: 4 mg Documented by: MELY Vital Signs Vital signs: Vital Signs - 8 hr 01/09/20 18:43 01/09/20 21:22 Temperature 97.9 F Pulse Rate 62 Pulse Rate [Left] 67 Respiratory Rate 20 14 Blood Pressure 126/68 Blood Pressure [Left Arm] 138/89 Pulse Oximetry 98 99 <Elly Ulrich DO - Last Filed: 01/10/20 00:16> Orders Ordered: Discontinued Medications Diphenhydramine HCl (Benadryl) 25 mg IV NOW ONE Stop: 01/09/20 20:09 Last Admin: 01/09/20 20:19 Dose: 25 mg Documented by: KAYLEY Sodium Chloride (Normal Saline 0.9%) 1,000 mls @ 1,000 mls/hr IV BOLUS PRN PRN Reason: Fluid replacement Last Infusion: 01/09/20 21:20 Dose: 0 mls/hr Documented by: Admin: 01/09/20 20:19 Dose: 1,000 mls/hr Documented by: KAYLEY Ketorolac Tromethamine (Toradol) 30 mg IM NOW ONE Stop: 01/09/20 18:57 Last Admin: 01/09/20 19:01 Dose: 30 mg Documented by: MELY Metoclopramide HCl (Reglan) 10 mg IV NOW ONE Stop: 01/09/20 20:09 Last Admin: 01/09/20 20:19 Dose: 10 mg Documented by: KAYLEY Ondansetron HCl (Zofran Odt) 4 mg SL NOW ONE Stop: 01/09/20 18:57 Last Admin: 01/09/20 19:00 Dose: 4 mg Documented by: MELY Ondansetron HCl (Zofran Odt) 4 mg SL NOW ONE Stop: 01/09/20 21:11 Last Admin: 01/09/20 21:20 Dose: 4 mg Documented by: MELY Vital Signs Vital signs: Vital Signs - 8 hr 01/09/20 18:43 01/09/20 21:22 Temperature 97.9 F Pulse Rate 62 Pulse Rate [Left] 67 Respiratory Rate 20 14 Blood Pressure 126/68 Blood Pressure [Left Arm] 138/89 Pulse Oximetry 98 99 MDM - Headache <MARISSA Nelson - Last Filed: 01/09/20 21:12> Medical Records Attestation: I reviewed the patient's medical records. Lab Data Attestation: I reviewed the patient's lab results. MDM Narrative Medical decision making narrative: This is a 29-year-old male with a history of migraines presenting to emergency department for a migraine that is consistent with past migraines. Patient is here as medications he has at home he ends up vomiting. Patient did not have significant relief after Toradol and Zofran administration. IV was started and he reported almost complete resolution of symptoms after IV fluids, Benadryl and Reglan. Patient is neuro exam was intact and he remained hemodynamically stable throughout the emergency department stay. Less concern for cranial etiology due to lack of concerning symptoms such as vision change, ataxia, or reports of trauma to the head. Patient was given ondansetron, Reglan, and ketorolac to take for continued symptoms. We discussed that follow-up was important to help manage migraine symptoms and to discussed prevention medications.. With plan of care verbalized understanding. Return precautions given for new or worsening symptoms. Discharge Plan Departure Patient Disposition: Home Clinical Impression: Migraine Qualifiers: Migraine type: unspecified Status migrainosus presence: without status migrainosus Intractability: not intractable Qualified Code(s): G43.909 - Migraine, unspecified, not intractable, without status migrainosus Discharge Date/Time: 01/09/20 21:23 Instructions: DI for Migraine Activity Restrictions/Additional Instructions: Thank you for entrusting me with your care today. As discussed, I have given you a nausea medication, please take this 1st when your headaches occur then wait 20 minutes and then ketorolac, 100mg of acetaminophen, and metoclopramide every 6-8 hours to help with headache relief. These medications were sent to [facility] [place] Please follow up with your primary care provider in the next few weeks for further discussion about migraine management and prevention. Return emergency department for any new or worsening symptoms such as vision loss, uncontrollable vomiting, chest pain, shortness of breath, high fevers, or other concerns. Prescriptions: New ketorolac 10 mg tablet 10 mg PO Q6H PRN (Reason: pain) 5 Days Qty: 10 RF: 0 ondansetron 4 mg tablet,disintegrating 4 mg PO Q6H Qty: 20 RF: 0 metoclopramide HCl [Reglan] 10 mg tablet 10 mg PO Q6H PRN (Reason: nausea and vomiting) Qty: 20 RF: 0 No Action acetaminophen 325 mg tablet 650 mg PO QID PRN (Reason: pain) RF: 0 hydrocodone-acetaminophen 5-325 mg tablet 1 tab PO BID PRN (Reason: pain) RF: 0 oxycodone-acetaminophen [Percocet] 5-325 mg tablet 1 tab PO Q4-6H PRN (Reason: pain) Qty: 20 RF: 0 ibuprofen 800 mg tablet 800 mg PO Q8H PRN (Reason: pain) Qty: 30 RF: 0
[2020-01-09] MEDS: METOCLOPRAMIDE 10 MG/2 ML INJ IV (20:19)
[2020-01-09] MEDS: diphenhydrAMINE 50 MG/ML VIAL 25 MG IV (20:19)
[2020-01-09] MEDS: SODIUM CHLORIDE 0.9% 1,000 ML 1000 ML IV (20:19)
[2020-01-09 21:22] VITALS: BP 126/68; PULSE 62; RESP 14; O2SAT 99
== END 2020-01-09 21:23 | disposition home or self-care (01) ==
PROVIDERS: Emergency Provider Nurse Practitioner
DX: G43.909 Migraine, unspecified, not intractable, without status migrainosus (principal)
CPT/HCPCS: 96361; 96372; 96374; 96375; 99284; J1200; J1885; J2765

== ENCOUNTER 2021-03-27 11:07 | Emergency (ER) | payer OTHER, SELFPAY ==
[2021-03-27] VITALS (8 sets, daily range): BP systolic 108–151; BP diastolic 72–93; PULSE 60–82; RESP 16; TEMP 36.6; O2SAT 97–99; BMI 25.0
--- NOTE | 2021-03-27 11:31 | ED.HA ---
HPI - Headache General Chief Complaint: Headache Stated Complaint: really bad migraine Time Seen by Provider: 03/27/21 11:17 Source: patient Mode of arrival: Ambulatory Limitations: no limitations History of Present Illness HPI Narrative: Patient is a 31-year-old male with a history of migraine headaches who is here with 1 of his typical migraines. He states that it is 1 of the ?bad migraines ?that he occasionally gets. He was at work at the onset. He states that it was a fairly sudden onset but this is typical for him when he gets a ?bad migraine ?has had nausea and vomiting. Photophobia. No chest pain. States that his headaches are very sporadic. Related Data Home Medications Medication Instructions Recorded Confirmed acetaminophen 650 mg PO QID PRN 07/07/19 07/07/19 hydrocodone-acetaminophen 1 tab PO BID PRN 07/07/19 07/07/19 Previous Rx's Medication Instructions Recorded ibuprofen 800 mg PO Q8H PRN #30 tab 07/01/19 oxycodone-acetaminophen [Percocet] 1 tab PO Q4-6H PRN #20 tab 07/07/19 metoclopramide HCl [Reglan] 10 mg PO Q6H PRN #20 tab 01/09/20 ondansetron 4 mg PO Q6H #20 tab 01/09/20 Allergies Allergy/AdvReac Type Severity Reaction Status Date / Time No Known Drug Allergies Allergy Verified 07/07/19 10:36 Review of Systems Constitutional Constitutional: Denies fever(s) and Reports headache(s) Eyes Eyes: Reports photophobia ENT Ears, Nose, Mouth, and Throat: Reports headache(s) and Denies sore throat Cardiovascular Cardiovascular: Denies chest pain and Denies dyspnea Respiratory Respiratory: Denies dyspnea Gastrointestinal Gastrointestinal: Denies abdominal pain, Reports nausea and Reports vomiting Musculoskeletal Musculoskeletal: Denies myalgias Integumentary/Breasts Skin/Breast: Denies rash Neurologic Neurologic: Reports headache(s) Hematologic/Lymphatic On Anticoagulants: No Allergic/Immunologic Allergic/Immunologic: Denies urticaria Patient History Medical History (Updated 03/27/21 @ 13:47 by Blaine Peraza DO) Patient denies medical problems Surgical History No pertinent past surgical history Social History (Reviewed 03/27/21 @ 11:33 by JOSE Vogt Smoking Status: Current every day smoker Smoking Status: Current every day smoker alcohol intake frequency: other Substance Use Type: does not use Exam Initial Vital Signs Initial Vital Signs: Vital Signs Pulse Rate 76 03/27/21 11:16 Blood Pressure 151/81 H 03/27/21 11:16 Pulse Oximetry 98 03/27/21 11:16 Const General: cooperative and comfortable Limitations: mental status not altered HENMT Head: normal to inspection and normocephalic Resp Effort & Inspection: normal respiratory effort Auscultation: clear to auscultation bilaterally Cardio Rate: regular rate Rhythm: regular rhythm GI Inspection: non-distended Palpation: soft Skin Lesions: no lesions Rashes: no rashes Neuro General: patient alert, patient awake and patient oriented x3 Speech: speech normal Extrem General: normal to inspection, capillary refill normal and No edema Psych Appearance: grossly normal and well kempt Course Orders Ordered: Discontinued Medications Diphenhydramine HCl (Diphenhydramine 50 Mg/Ml Vial) 25 mg IV NOW ONE Stop: 03/27/21 11:32 Last Admin: 03/27/21 11:59 Dose: 25 mg Documented by: SREE Hydromorphone HCl (Hydromorphone 0.5 Mg Inj) 0.5 mg IV NOW ONE Stop: 03/27/21 12:58 Last Admin: 03/27/21 13:09 Dose: 0.5 mg Documented by: [email or web address] Hydromorphone HCl (Hydromorphone 0.5 Mg Inj) 0.5 mg IV NOW ONE Stop: 03/27/21 13:46 Last Admin: 03/27/21 13:58 Dose: 0.5 mg Documented by: [email or web address] Sodium Chloride (Normal Saline 0.9%) 1,000 mls @ 1,000 mls/hr IV BOLUS ONE Stop: 03/27/21 12:30 Last Infusion: 03/27/21 12:46 Dose: 0 mls/hr Documented by: Admin: 03/27/21 11:59 Dose: 1,000 mls/hr Documented by: SREE Ketorolac Tromethamine (Ketorolac 30 Mg/Ml Vial) 30 mg IV NOW ONE Stop: 03/27/21 11:32 Last Admin: 03/27/21 11:59 Dose: 30 mg Documented by: SREE Metoclopramide HCl (Metoclopramide 10 Mg/2 Ml Inj) 10 mg IV NOW ONE Stop: 03/27/21 11:32 Last Admin: 03/27/21 11:59 Dose: 10 mg Documented by: SREE Vital Signs Vital signs: Vital Signs - 8 hr 03/27/21 11:16 03/27/21 11:19 03/27/21 11:30 Temperature 97.8 F Pulse Rate 76 75 82 Respiratory Rate 16 Blood Pressure 151/81 H 151/87 H 140/87 Pulse Oximetry 98 97 99 03/27/21 12:00 03/27/21 12:01 03/27/21 12:30 Temperature Pulse Rate 61 64 61 Respiratory Rate Blood Pressure 138/93 H Pulse Oximetry 97 97 97 03/27/21 12:31 03/27/21 14:04 Temperature Pulse Rate 60 71 Respiratory Rate 16 Blood Pressure 115/72 108/78 Pulse Oximetry 98 98 MDM - Headache MDM Narrative Medical decision making narrative: Patient reported improvement of his headache after medications here in the ER. I have low suspicion for meningitis. Low suspicion for subarachnoid hemorrhage based on his presentation. Patient stated that he felt well enough to be discharged home with strict return precautions. He expressed understanding and agreement. Discharge Plan Departure Patient Disposition: Home Clinical Impression: Migraine Instructions: DI for Migraine Activity Restrictions/Additional Instructions: You were given medication today that will make you positive on a urinalysis. Please be sure that you make noted that on the sheet if you are required to give a sample. The medication you were given was called Dilaudid. Contact your medical department for follow-up. Return to the emergency department for any new or worsening symptoms. Prescriptions: No Action acetaminophen 325 mg tablet 650 mg PO QID PRN (Reason: pain) RF: 0 hydrocodone-acetaminophen 5-325 mg tablet 1 tab PO BID PRN (Reason: pain) RF: 0 oxycodone-acetaminophen [Percocet] 5-325 mg tablet 1 tab PO Q4-6H PRN (Reason: pain) Qty: 20 RF: 0 ibuprofen 800 mg tablet 800 mg PO Q8H PRN (Reason: pain) Qty: 30 RF: 0 ondansetron 4 mg tablet,disintegrating 4 mg PO Q6H Qty: 20 RF: 0 metoclopramide HCl [Reglan] 10 mg tablet 10 mg PO Q6H PRN (Reason: nausea and vomiting) Qty: 20 RF: 0 Stand Alone Forms: Work Release Note
[2021-03-27] MEDS: METOCLOPRAMIDE 10 MG/2 ML INJ IV (11:59)
[2021-03-27] MEDS: SODIUM CHLORIDE 0.9% 1,000 ML 1000 ML IV (11:59)
[2021-03-27] MEDS: KETOROLAC 30 MG/ML VIAL IV (11:59)
[2021-03-27] MEDS: diphenhydrAMINE 50 MG/ML VIAL 25 MG IV (11:59)
[2021-03-27] MEDS: HYDROMORPHONE 0.5 MG INJ IV ×2 (13:09→13:58)
== END 2021-03-27 14:05 | disposition home or self-care (01) ==
PROVIDERS: Emergency Provider Emergency Medicine
DX: G43.909 Migraine, unspecified, not intractable, without status migrainosus (principal); R11.2 Nausea with vomiting, unspecified
CPT/HCPCS: 36415; 96361; 96374; 96375; 96376; 99284; J1170; J1200; J1885; J2765

== ENCOUNTER 2021-05-14 13:18 | Emergency (ER) | payer OTHER, SELFPAY ==
[2021-05-14 13:30] VITALS: BP 123/76; PULSE 79; RESP 14; TEMP 37.1; O2SAT 94
[2021-05-14] MEDS: SODIUM CHLORIDE 0.9% 1,000 ML 1000 ML IV (13:40)
[2021-05-14] MEDS: KETOROLAC 30 MG/ML VIAL 15 MG IV (14:00)
[2021-05-14] MEDS: diphenhydrAMINE 50 MG/ML VIAL 25 MG IV (14:00)
[2021-05-14] MEDS: METOCLOPRAMIDE 10 MG/2 ML INJ IV (14:00)
--- NOTE | 2021-05-14 14:19 | ED.HA ---
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 Patient reports associated symptoms such as nausea, vomiting, photophobia and phonophobia. Location of headache this time is in posterior head which is different from his usual migraine headache location which is top of his head. Otherwise the character of the headache is same and described as sharp but the severity of the headache is worse. Patient used to take preventive measures for migraine headache but is not currently taking medications. Patient had not tried Tylenol or Motrin as home treatment before coming into ED stating it doesn't work. Significant other states patient received 2nd COVID shot yesterday before headache started. Patient had similar response to 1st COVID shot about a month ago but the severity was less at that time. Patient denies recent cold symptoms, head trauma, unusual rashes, fever, chills. Patient states his migraine headache is usually triggered by stress. Related Data Previous Rx's Medication Instructions Recorded ondansetron 4 mg PO Q8H PRN #7 tab 05/14/21 Allergies Allergy/AdvReac Type Severity Reaction Status Date / Time No Known Drug Allergies Allergy Verified 07/07/19 10:36 Review of Systems <MARISSA Stanford - Last Filed: 05/14/21 19:49> Review of Systems Narrative: General: Denies fever, chills, fatigue, malaise, sweats. HEENT: See HPI Respiratory: Denies dyspnea, cough, wheezing, hemoptysis, sputum. Cardiovascular: Denies chest pain, palpitations, orthopnea, edema. Gastrointestinal: See HPI : Denies dysuria, frequency, incontinence, hematuria, urinary retention. Musculoskeletal: Denies weakness, joint pain or bony pain. Skin: Denies rash, skin lesions, or other. Neurologic: See HPI Psychiatric: No concerning psychosocial issues. 12-point review of systems is negative except for those stated above. Patient History <MARISSA Stanford - Last Filed: 05/14/21 19:49> Medical History (Updated 05/14/21 @ 15:48 by MARISSA Stanford) Patient denies medical problems Surgical History No pertinent past surgical history Social History Smoking Status: Current every day smoker Smoking Status: Current every day smoker alcohol intake frequency: other Substance Use Type: does not use Exam <MARISSA Stanford - Last Filed: 05/14/21 19:49> Narrative Exam Narrative: GEN: Alert, oriented x 3, appears to be in discomfort. Patient found in the room resting in supine position in dark room with sunglasses on. Head: Normal cephalic, atraumatic. No scalp or temporal tenderness, palpable mass or rash. EYES: Pupils are equal, round. Extraocular muscles are intact bilaterally. There is no subconjunctival hemorrhage, exudate and sclera non-icteric. ENT: Hearing grossly intact. Nose without bleeding, purulent discharge or deviation. Mucous membrane moist, no mucosal lesion. Throat without erythema, tonsillar hypertrophy or exudate. Uvula in midline, airway patent. Neck: Trachea in midline. No JVD, non-tender without lymphadenopathy. No masses or thyroid megaly. Supple, non-tender and no meningeal signs. CARDIAC: Normal regular rate and rhythm without murmurs, gallops, or rubs. No chest wall tenderness. No peripheral edema, cyanosis or pallor. Capillary refill is less than 2 seconds. RESPIRATORY: Lungs are clear to auscultate bilaterally. No cough, wheezes, rales, or rhonchi. No stridor, respiratory distress, increase work of breathing, or accessary muscle used. ABD: Abdomen soft, nontender and non-distended. No guarding or rebound tenderness to palpate. Bowel sounds are normal in all 4 quadrants. There is no palpable masses or organomegaly. EXT: Full painless ROM of all extremities with no loss of sensation, strength, effusion or edema. SKIN: Warm, dry, normal color for patient. No erythema, lesions or rash over visible areas. BACK: Nontender without deformity or crepitance. No flank tenderness. NEUROLOGICAL: Alert and oriented to place, time and person. Sensation and motor function intact bilaterally. No facial droops, dysphasia. PSYCHIATRIC: Good judgement and reason, without hallucinations, cooperative. Patient is not suicidal. Initial Vital Signs Initial Vital Signs: Vital Signs Temperature 98.7 F 05/14/21 13:30 Pulse Rate 79 05/14/21 13:30 Respiratory Rate 14 05/14/21 13:30 Blood Pressure 123/76 05/14/21 13:30 Pulse Oximetry 94 05/14/21 13:30 <Jessenia Ponce DO - Last Filed: 05/15/21 11:06> Initial Vital Signs Initial Vital Signs: Vital Signs Temperature 98.7 F 05/14/21 13:30 Pulse Rate 79 05/14/21 13:30 Respiratory Rate 14 05/14/21 13:30 Blood Pressure 123/76 05/14/21 13:30 Pulse Oximetry 94 05/14/21 13:30 Scores <MARISSA Stanford - Last Filed: 05/14/21 19:49> GCS Naomi coma scale eye opening: Spontaneous [place] coma scale verbal response: Orientated Naomi coma scale motor response: Obey commands [place] coma scale total score: 15 Course <MARISSA Stanford - Last Filed: 05/14/21 19:49> Orders Ordered: Discontinued Medications Diphenhydramine HCl (Diphenhydramine 50 Mg/Ml Vial) 25 mg IV NOW ONE Stop: 05/14/21 13:49 Last Admin: 05/14/21 14:00 Dose: 25 mg Documented by: MELY Hydromorphone HCl (Hydromorphone 0.5 Mg Inj) 0.5 mg IV NOW ONE Stop: 05/14/21 14:36 Last Admin: 05/14/21 14:40 Dose: 0.5 mg Documented by: ZULEMA Hydromorphone HCl (Hydromorphone 0.5 Mg Inj) 0.5 mg IV NOW ONE Stop: 05/14/21 15:14 Last Admin: 05/14/21 15:30 Dose: 0.5 mg Documented by: ZULEMA Sodium Chloride (Normal Saline 0.9%) 1,000 mls @ 1,000 mls/hr IV BOLUS ONE Stop: 05/14/21 14:37 Last Infusion: 05/14/21 14:34 Dose: 0 mls/hr Documented by: Admin: 05/14/21 13:40 Dose: 1,000 mls/hr Documented by: ZULEMA Ketorolac Tromethamine (Ketorolac 30 Mg/Ml Vial) 15 mg IV NOW ONE Stop: 05/14/21 13:49 Last Admin: 05/14/21 14:00 Dose: 15 mg Documented by: MELY Metoclopramide HCl (Metoclopramide 10 Mg/2 Ml Inj) 10 mg IV NOW ONE Stop: 05/14/21 13:49 Last Admin: 05/14/21 14:00 Dose: 10 mg Documented by: MELY Reevaluation(s) Reevaluation #1: Patient reports headache still remaining in 08/01. Dilaudid 0.5mg IV added Time: 14:38 Reevaluation #2: Patient reports resolved nausea and improving migraine headache and rates as /10 at this time. Time: 15:14 Reevaluation #3: Reports headache improved and is ready to go home. Patient sitting up in bed and ambulatory as well. Longer has photophobia at this time. Time: 15:47 Vital Signs Vital signs: Vital Signs - 8 hr 05/14/21 13:30 05/14/21 14:43 Temperature 98.7 F Pulse Rate 79 58 L Respiratory Rate 14 16 Blood Pressure 123/76 118/72 Pulse Oximetry 94 99 <Jessenia Ponce, - Last Filed: 05/15/21 11:06> Orders Ordered: Discontinued Medications Diphenhydramine HCl (Diphenhydramine 50 Mg/Ml Vial) 25 mg IV NOW ONE Stop: 05/14/21 13:49 Last Admin: 05/14/21 14:00 Dose: 25 mg Documented by: MELY Hydromorphone HCl (Hydromorphone 0.5 Mg Inj) 0.5 mg IV NOW ONE Stop: 05/14/21 14:36 Last Admin: 05/14/21 14:40 Dose: 0.5 mg Documented by: ZULEMA Hydromorphone HCl (Hydromorphone 0.5 Mg Inj) 0.5 mg IV NOW ONE Stop: 05/14/21 15:14 Last Admin: 05/14/21 15:30 Dose: 0.5 mg Documented by: ZULEMA Sodium Chloride (Normal Saline 0.9%) 1,000 mls @ 1,000 mls/hr IV BOLUS ONE Stop: 05/14/21 14:37 Last Infusion: 05/14/21 14:34 Dose: 0 mls/hr Documented by: Admin: 05/14/21 13:40 Dose: 1,000 mls/hr Documented by: ZULEMA Ketorolac Tromethamine (Ketorolac 30 Mg/Ml Vial) 15 mg IV NOW ONE Stop: 05/14/21 13:49 Last Admin: 05/14/21 14:00 Dose: 15 mg Documented by: MELY Metoclopramide HCl (Metoclopramide 10 Mg/2 Ml Inj) 10 mg IV NOW ONE Stop: 05/14/21 13:49 Last Admin: 05/14/21 14:00 Dose: 10 mg Documented by: MELY Vital Signs Vital signs: Vital Signs - 8 hr 05/14/21 13:30 05/14/21 14:43 Temperature 98.7 F Pulse Rate 79 58 L Respiratory Rate 14 16 Blood Pressure 123/76 118/72 Pulse Oximetry 94 99 MDM - Headache <Hitesh WallaceSWETAP - Last Filed: 05/14/21 19:49> Differential Diagnosis Differential diagnosis: Likely migraine and other (Intracranial mass, intracranial bleed, reaction to vaccination) Medical Records Attestation: I reviewed the patient's medical records. Lab Data Attestation: I reviewed the patient's lab results. Labs: Urine Dip Bedside Urine Glucose Negative Bedside Urine Bilirubin - Negative Bedside Urine Ketone - Negative Urine Specific [place] 1.025 Bedside Urine Occult Blood - Negative Bedside Urine pH 6.0 Bedside Urine Protein - Negative Bedside Urine Urobilinogen - Negative Bedside Urine Nitrite - Negative Bedside Urine Leukocytes - Negative Esterase MDM Narrative Medical decision making narrative: This is a 31-year-old male who has past medical history significant for migraine headache came into ED with posterior migraine headache is more severe than his usual with photophobia, phonophobia, and nausea which started at 5:00 a.m.. Patient had not taken home treatments before coming into ED. FAST neuro exam is negative. Patient states he had received COVID 2nd dose vaccination yesterday and when he received 1st dose of COVID vaccination he had similar migraine headache but not as this severe. Patient was treated with migraine cocktail of Toradol, Reglan, Benadryl, IVF with no significant improvement. Patient received total 1mg Dilaudid of 0.5 mg each in two doses with much improved symptoms. No obvious neurological deficit appreciated after the pain improved. VS within normal and afebrile. Return precautions discussed with patient and advised to follow up with primary care physician which patient verbalized understanding and agreement with the treatment plan. <Jessenia Ponce DO - Last Filed: 05/15/21 11:06> Lab Data Labs: Urine Dip Bedside Urine Glucose Negative Bedside Urine Bilirubin - Negative Bedside Urine Ketone - Negative Urine Specific [place] 1.025 Bedside Urine Occult Blood - Negative Bedside Urine pH 6.0 Bedside Urine Protein - Negative Bedside Urine Urobilinogen - Negative Bedside Urine Nitrite - Negative Bedside Urine Leukocytes - Negative Esterase Discharge Plan Departure Patient Disposition: Home Clinical Impression: Migraine Qualifiers: Migraine type: unspecified Status migrainosus presence: without status migrainosus Intractability: not intractable Qualified Code(s): G43.909 - Migraine, unspecified, not intractable, without status migrainosus Instructions: DI for Migraine Activity Restrictions/Additional Instructions: You have been diagnosed with [migraine headache. Your symptoms improved after IV fluid hydration and medications.]. What to do: *Take your medications as directed. You can take [id number] Tylenol and or Motrin as needed for discomfort if pain recurs. *Follow up with your primary care provider in 2-3 days, call for an appointment. Let them know you were seen in the ED and that we asked you to be seen in follow up. You can take Zofran as needed for nausea. *Return to ED if you have any new, worsening, or concerning symptoms, such as [worsening pain, facial droops, speech difficulty, weakness to extremities, vision change, fever, unusual rashes, or any acute concerns.]. Prescriptions: New ondansetron 4 mg tablet,disintegrating 4 mg PO Q8H PRN (Reason: nausea and vomiting) Qty: 7 RF: 0 Referrals: [facility] [Outside] <Jessenia Ponce DO - Last Filed: 05/15/21 11:06> Sign Out Provider Sign Out Attestation: I was immediately available in the department for consultation. Documentation has been reviewed. I agree with assessment and plan.
[2021-05-14] MEDS: HYDROMORPHONE 0.5 MG INJ IV ×2 (14:40→15:30)
[2021-05-14 14:43] VITALS: BP 118/72; PULSE 58; RESP 16; O2SAT 99
== END 2021-05-14 15:57 | disposition home or self-care (01) ==
PROVIDERS: Emergency Provider Nurse Practitioner Family
DX: G43.909 Migraine, unspecified, not intractable, without status migrainosus (principal)
CPT/HCPCS: 81003; 96361; 96374; 96375; 96376; 99283; 99284; J1170; J1200; J1885; J2765

== ENCOUNTER 2021-07-24 16:13 | Emergency (ER) | payer OTHER, SELFPAY ==
[2021-07-24 16:16] VITALS: BP 142/90; PULSE 80; RESP 16; TEMP 36.8; O2SAT 97; BMI 26.6
--- NOTE | 2021-07-24 17:00 | PC.NURSE ---
Addendum entered by Anupama Locke R.N. 07/24/21 17:25: emesis about 25ml Original Note: not providing zofran odt, pt vomited at the end of triage. with provide IV route once pt is in room.
[2021-07-24] MEDS: ONDANSETRON 4 MG/2 ML INJ IV (18:00)
[2021-07-24] MEDS: SODIUM CHLORIDE 0.9% 1,000 ML 1000 ML IV ×2 (18:00→19:00)
--- NOTE | 2021-07-24 18:25 | ED.HA ---
HPI - Headache General Chief Complaint: Headache Stated Complaint: Migraine Time Seen by Provider: 07/24/21 18:08 History of Present Illness HPI Narrative: 31-year-old male he states that it is intense and squeezing and quite severe. He denies any fever or chills. He has no neck pain. He denies any recent trauma. He has some blurring of vision and states that his symptoms are worse with bright lights, loud noise and exertion. They seem to improve some in a dark room. He did not take any medications at home as he was out and about, driving around and performing errands when this 1 came on. He has extensive history of the same and this is relatively similar to prior experiences. He states the typical migraine cocktail does not work and typically it will not go away until he receives dilaudid. Related Data Previous Rx's Medication Instructions Recorded ondansetron 4 mg disintegrating 4 mg PO Q8H PRN #7 tab 05/14/21 tablet Allergies Allergy/AdvReac Type Severity Reaction Status Date / Time No Known Drug Allergies Allergy Verified 07/07/19 10:36 Review of Systems Review of Systems Narrative: GENERAL: Denies chills, fatigue, malaise, fever, sweats. HEENT: Denies sinus pain, ear pain, sore throat, difficulty swallowing, dizziness. RESPIRATORY: Denies dyspnea, cough, wheezing, hemoptysis, sputum. CARDIOVASCULAR: Denies chest pain, palpitations, orthopnea, edema, GASTROINTESTINAL: See HPI : Denies dysuria, frequency, incontinence, hematuria, urinary retention. MUSCULOSKELETAL: denies weakness, joint pain, or bony pain SKIN: Denies rash, skin lesions, or other NEUROLOGIC: See HPI PSYCHIATRIC: No concerning psychosocial issues. 12 point review of systems is negative except for those stated above Patient History Medical History (Updated 07/24/21 @ 21:12 by Jim Smith DO) Patient denies medical problems Surgical History No pertinent past surgical history Social History Smoking Status: Current every day smoker Smoking Status: Current every day smoker alcohol intake frequency: other Substance Use Type: does not use Exam Narrative Exam Narrative: GENERAL: 31] year old patient appears stated age. Well-developed patient, in mild distress. Sitting in a dark room with towel covering his eyes HEAD: Atraumatic. Normocephalic. EYES: Pupils equal round and reactive. Extraocular motions intact. No scleral icterus. No injection or drainage. ENT: Nose without bleeding, purulent drainage. Throat without erythema, tonsillar hypertrophy or exudate. Airway patent. NECK: Trachea midline. Non tender CARDIOVASCULAR: Regular rate and rhythm without murmurs, gallops, or rubs. RESPIRATORY: Clear to auscultation. Breath sounds equal bilaterally. No wheezes, rales, or rhonchi. GASTROINTESTINAL: Abdomen soft, non-tender, nondistended. EXTREMITIES: No edema or joint tenderness. BACK: Nontender without deformity or crepitance. No flank tenderness. NEURO: AOx3. SKIN: No rash or erythema of visible areas NIH Stroke Scale 1a. LOC: Patient is alert and keenly responsive (0) 1b. LOC Questions: Patient answers both LOC questions accurately (0) 1c. LOC Commands: Patient performs both tasks correctly (0) 2. Best Gaze: Normal (0) 3. Visual: No visual loss (0) 4. Facial palsy: Normal symmetrical movements (0) 5. Motor arm: No drift (0) 6. Motor leg: No drift (0) 7. Limb ataxia: Absent (0) 8. Sensory: Normal (0) 9. Best language: No aphasia; normal (0) 10. Dysarthria: Normal (0) 11. Extinction and inattention: No abnormality (0) NIHSS: 0 Initial Vital Signs Initial Vital Signs: Vital Signs Temperature 98.3 F 07/24/21 16:16 Pulse Rate 80 07/24/21 16:16 Respiratory Rate 16 07/24/21 16:16 Blood Pressure 142/90 H 07/24/21 16:16 Pulse Oximetry 97 07/24/21 16:16 Course Orders Ordered: Discontinued Medications Dexamethasone (Dexamethasone 10 Mg/Ml Vial) 10 mg IV NOW ONE Stop: 07/24/21 18:31 Last Admin: 07/24/21 18:57 Dose: 10 mg Documented by: CLAUDIO Diphenhydramine HCl (Diphenhydramine 50 Mg/Ml Vial) 25 mg IV NOW ONE Stop: 07/24/21 18:31 Last Admin: 07/24/21 18:54 Dose: 25 mg Documented by: RSTONE Hydromorphone HCl (Hydromorphone 1 Mg Inj) 1 mg IV NOW ONE Stop: 07/24/21 19:41 Last Admin: 07/24/21 19:57 Dose: 1 mg Documented by: SINTIA Hydromorphone HCl (Hydromorphone 1 Mg Inj) 1 mg IV NOW ONE Stop: 07/24/21 20:27 Last Admin: 07/24/21 20:34 Dose: 1 mg Documented by: SINTIA Sodium Chloride (Normal Saline 0.9%) 1,000 mls @ 1,000 mls/hr IV BOLUS ONE Stop: 07/24/21 18:44 Last Infusion: 07/24/21 19:00 Dose: 0 mls/hr Documented by: Admin: 07/24/21 18:00 Dose: 1,000 mls/hr Documented by: CLAUDIO Sodium Chloride (Normal Saline 0.9%) 1,000 mls @ 1,000 mls/hr IV BOLUS ONE Stop: 07/24/21 19:29 Last Infusion: 07/24/21 20:03 Dose: 0 mls/hr Documented by: Admin: 07/24/21 19:00 Dose: 1,000 mls/hr Documented by: CLAUDIO Ketorolac Tromethamine (Ketorolac 30 Mg/Ml Vial) 15 mg IV NOW ONE Stop: 07/24/21 18:31 Last Admin: 07/24/21 18:58 Dose: 15 mg Documented by: CLAUDIO Metoclopramide HCl (Metoclopramide 10 Mg/2 Ml Inj) 10 mg IV NOW ONE Stop: 07/24/21 18:31 Last Admin: 07/24/21 19:02 Dose: 10 mg Documented by: CLAUDIO Ondansetron HCl (Ondansetron 4 Mg Odt) 4 mg SL NOW ONE Stop: 07/24/21 16:21 Last Admin: 07/24/21 17:00 Dose: Not Given Documented by: VALDEMAR Ondansetron HCl (Ondansetron 4 Mg/2 Ml Inj) 4 mg IV NOW ONE Stop: 07/24/21 17:46 Last Admin: 07/24/21 18:00 Dose: 4 mg Documented by: CLAUDIO Vital Signs Vital signs: Vital Signs - 8 hr 09/02/21 21:20 Pulse Rate 76 Respiratory Rate 17 Blood Pressure 144/93 H Pulse Oximetry 95 MDM - Headache MDM Narrative Medical decision making narrative: Headache considerations include, but not limited to: Subarachnoid hemorrhage, but unlikely as patient denies sudden onset of pain, not worst of life, or neck pain Meningitis considered, but thought unlikely given lack of Brudzinski's, Kernig's sign, altered mental status or fever Giant cell arteritis considered, but thought unlikely given lack of unilateral findings, pain in zoroastrian, vision change HTN Emergency considered, but thought unlikely given normal vitals Other serious diagnoses considered unlikely given lack of red flag findings such as sudden onset, increasing frequency, immunocompromise, systemic signs (fever, chills, stiff neck, or rash), focal neurologic findings, trauma, blood thinners, etc. Discharge Plan Departure Patient Disposition: Home Clinical Impression: Atypical migraine Instructions: DI for Headache Activity Restrictions/Additional Instructions: *You have been diagnosed with [Atypical Migraine ] *What to do: *Please continue to take your regular medications as directed. [ ] New medication prescriptions sent to your pharmacy: [ ] [ ] New medication written as a paper prescription [x ] No new medications given *Please follow up with your primary care provider in 2-3 days, call for an appointment. Let them know you were seen in the Emergency Department and that we ask that you be seen in follow up. We will electronically transmit a record of today's note if your PCP is in our system *If you do not have a primary care provider please contact the [facility] Resource line at [phone]. They will ask some questions about your medical history and help get you set up with a doctor in the community. *Return to Emergency Department if you should have any new, worsening or concerning symptoms, such as [fever greater than 101 F, shaking chills, worsening pain, persistent vomiting or other bothersome symptoms] Prescriptions: No Action ondansetron 4 mg tablet,disintegrating 4 mg PO Q8H PRN (Reason: nausea and vomiting) Qty: 7 RF: 0
[2021-07-24] MEDS: diphenhydrAMINE 50 MG/ML VIAL 25 MG IV (18:54)
[2021-07-24] MEDS: DEXAMETHASONE 10 MG/ML VIAL IV (18:57)
[2021-07-24] MEDS: KETOROLAC 30 MG/ML VIAL 15 MG IV (18:58)
[2021-07-24] MEDS: METOCLOPRAMIDE 10 MG/2 ML INJ IV (19:02)
[2021-07-24] MEDS: HYDROMORPHONE 1 MG INJ IV ×2 (19:57→20:34)
[2021-07-24 21:20] VITALS: BP 144/93; PULSE 76; RESP 17; O2SAT 95
== END 2021-07-24 21:20 | disposition home or self-care (01) ==
PROVIDERS: Emergency Provider Emergency Medicine
DX: G43.009 Migraine without aura, not intractable, without status migrainosus (principal)
CPT/HCPCS: 36415; 96361; 96374; 96375; 96376; 99284; J1100; J1170; J1200; J1885; J2405; J2765

== ENCOUNTER 2021-07-25 17:09 | Emergency (ER) | payer OTHER, SELFPAY ==
[2021-07-25] VITALS (7 sets, daily range): BP systolic 120–140; BP diastolic 70–98; PULSE 72–93; RESP 16; TEMP 36.6; O2SAT 93–96; BMI 26.1
--- NOTE | 2021-07-25 22:04 | DI.CT.S_ITS ---
PROCEDURE: CT HEAD/BRAIN WO CON INDICATIONS: severe headache TECHNIQUE: Noncontrast 4.5 mm thick angled axial sections acquired from the foramen magnum to the vertex, with coronal and sagittal reformats. For radiation dose reduction, the following was used: automated exposure control, adjustment of mA and/or kV according to patient size. COMPARISON: [facility], CT, CT ANGIO HEAD AND NECK, 07/26/2021, 1:03. FINDINGS: Image quality: Excellent. CSF spaces: Basal cisterns are patent. No extra-axial fluid collections. Ventricles are normal in size and shape. Brain: No midline shift. No intracranial masses or hemorrhage. Michael-white matter interface is normal. Skull and face: Calvarium and visualized facial bones are intact, without suspicious lesions. Sinuses: Visualized sinuses and mastoids are clear. IMPRESSION: No acute intracranial hemorrhage is seen. No acute intracranial process is seen. Note: No significant discrepancy from the preliminary report. Dictated by: Fernie Trujillo M.D. on 07/26/2021 at 7:31 Approved by: Fernie Trujillo M.D. on 07/26/2021 at 7:32
[2021-07-25] MEDS: HYDROMORPHONE 1 MG INJ IV (22:19)
[2021-07-25] MEDS: SODIUM CHLORIDE 0.9% 1,000 ML 1000 ML IV (22:19)
[2021-07-25] MEDS: ONDANSETRON 4 MG/2 ML INJ IV (22:19)
[2021-07-25 22:23] LABS: Add Manual Diff / Slide Review NO; Basophils Absolute Auto 0 /uL (0-100); Basophils Percent Auto 0.4 % (0-2); Eosinophils Absolute Auto 0 /uL (0-450); Eosinophils Percent Auto 0.4 % (2-4); Hematocrit 41.9 % (41-53); Hemoglobin 14.3 g/dL (13.5-17.5); Lymphocytes Absolute Auto 2500 /uL (1100-4500); Lymphocytes Percent Auto 22.3 % (25-40); Mean Corpuscular HGB Conc 34.2 % (30-36); Mean Corpuscular Hemoglobin 31.2 PG (26-34); Mean Corpuscular Volume 91.5 fL (80-100); Monocytes Absolute Auto 1100 /uL (0-900); Monocytes Percent Auto 9.6 % (3-14); Neutrophils Absolute Auto 7600 /uL (1500-7000); Neutrophils Percent Auto 67.3 % (50-75); Platelet Count 197 X10^3/uL (150-400); Red Blood Cell Count 4.58 X10^6/uL (4.5-5.9); Red Cell Distribution Width 12.9 % (11.6-14.8); White Blood Cell Count 11.2 X10^3/uL (4.5-11.0)
[2021-07-25 22:32] LABS: BUN Creatinine Ratio 31.6 (6-22); Blood Urea Nitrogen 24 mg/dL (9-20); Calcium 9.1 mg/dL (8.4-10.2); Carbon Dioxide 30 mmol/L (22-32); Chloride 104 mmol/L (98-107); Estimated Glomerular Filt Rate > 60.0 mL/min (>60); Glucose 96 mg/dL (70-100); HEMOLYSIS < 15 (0-50); Potassium 3.9 mmol/L (3.4-5.1); Sodium 140 mmol/L (137-145)
[2021-07-26] VITALS: BP 125/74; PULSE 72; O2SAT 94
[2021-07-26 00:30] VITALS: BP 116/68; PULSE 63; O2SAT 93
--- NOTE | 2021-07-26 00:40 | DI.CT.S_ITS ---
PROCEDURE: CT ANGIO HEAD AND NECK INDICATIONS: severe worsening headache TECHNIQUE: Noncontrast images were performed earlier in the day and not repeated. After the administration of intravenous contrast, 1 mm thick sections acquired from the aortic arch through the [place]. Post-contrast 4.5 mm thick sections then re-acquired from the foramen magnum to the vertex. 3-dimensional yeotcav-dzgmuebgh-kvzzdqktoc (MIP) and/or volume rendering reformats were acquired of the central intracranial vasculature and neck separately. COMPARISON: [facility], CT, CT HEAD/BRAIN WO CON, 07/25/2021, 22:28. FINDINGS: Image quality: Excellent. BRAIN: CSF spaces: Ventricles are normal in size and shape. Basal cisterns are patent. No extra-axial fluid collections. Brain: No midline shift. No intracranial bleeds or masses. Michael-white matter interface appears intact. Skull and face: Calvarium and facial bones appear intact, without suspicious lesions. Orbits appear normal. Sinuses: Sinuses and mastoids are clear. HEAD CT ANGIOGRAPHY: Anterior circulation: Intracranial internal carotid arteries are normal in size and flow. The flow within the paired anterior cerebral arteries is normal and symmetric. There is an early branching of the left anterior cerebral The flow within the middle cerebral arteries is normal and symmetric. The anterior communicating artery is seen. No aneurysms are seen. Posterior circulation: Visualized portions of the vertebral arteries demonstrate normal caliber, and join to form a normal appearing basilar artery. Flow within the posterior cerebral arteries is normal and symmetric. No aneurysms are seen. NECK CT ANGIOGRAPHY: Carotid system: The great vessels demonstrate a conventional anatomy as they arise from the aortic arch. The origins of the common carotid arteries appear patent. The common carotid arteries demonstrate normal caliber and courses. The bifurcation regions are both widely patent. The internal carotid arteries demonstrate normal calibers and courses. Posterior circulation: The origins of the vertebral arteries both appear widely patent. The more superior extracranial portions of both vertebral arteries also demonstrate normal courses and calibers. They join to form a normal appearing basilar artery. Soft tissues: Visualized neck soft tissues demonstrate no suspicious abnormalities. Bones: No suspicious bony lesions. Visualized cervical spine appears normally aligned. IMPRESSION: No significant intracranial arterial abnormality is seen. No aneurysm can be seen. Within the arteries of the neck, no hemodynamically significant stenosis can be seen. No findings of dissection are seen. Note: No significant discrepancy from the preliminary report. Any quantitative measurements of stenosis were performed using NASCET criteria. Dictated by: Fernie Trujillo M.D. on 07/26/2021 at 7:47 Approved by: Fernie Trujillo M.D. on 07/26/2021 at 7:49
[2021-07-26] MEDS: ACETAMINOPHEN IV 1,000 MG/100 ML VIAL 400 MG IV (00:55)
[2021-07-26 01:00] VITALS: BP 111/74; PULSE 67; O2SAT 94
--- NOTE | 2021-07-26 01:24 | ED.HA ---
HPI - Headache General Chief Complaint: Headache Stated Complaint: HEAD PAIN VOMITING NOT BETTER SHAKING Time Seen by Provider: 07/25/21 19:44 Mode of arrival: Ambulatory Limitations: no limitations History of Present Illness HPI Narrative: 31-year-old male daily smoker with history of headaches returns for the 2nd time is is been days with a chief complaint of a recurrence of a severe generalized headache. Again he states that it was rather gradual in its onset, generalized in nature and quite severe. He states bright lights and loud noises make it worse and he has associated nausea but denies vomiting. He states he has severe headaches like this that are often brought in by stress and admits that he is going through a lot at work as well as a rough divorce, and an upcoming [place] the [place]. He denies fever chills nor neck pain. He denies any blurred vision or focal neurologic findings such as trouble with speech, numbness, tingling or weakness of his extremities. Related Data Previous Rx's Medication Instructions Recorded ondansetron 4 mg disintegrating 4 mg PO Q8H PRN #7 tab 05/14/21 tablet Allergies Allergy/AdvReac Type Severity Reaction Status Date / Time metoclopramide [From Reglan] AdvReac Intermediate Irritable Verified 07/25/21 17:31 Review of Systems Review of Systems Narrative: GENERAL: Denies chills, fatigue, malaise, fever, sweats. HEENT: Denies sinus pain, ear pain, sore throat, difficulty swallowing, dizziness. RESPIRATORY: Denies dyspnea, cough, wheezing, hemoptysis, sputum. CARDIOVASCULAR: Denies chest pain, palpitations, orthopnea, edema, GASTROINTESTINAL: Denies nausea, vomiting, abdominal pain, diarrhea, constipation, melena. : Denies dysuria, frequency, incontinence, hematuria, urinary retention. MUSCULOSKELETAL: denies weakness, joint pain, or bony pain SKIN: Denies rash, skin lesions, or other NEUROLOGIC: See HPI PSYCHIATRIC: No concerning psychosocial issues. 12 point review of systems is negative except for those stated above Patient History Medical History (Updated 07/26/21 @ 02:28 by Jim Smith DO) Patient denies medical problems Surgical History No pertinent past surgical history Social History Smoking Status: Current every day smoker Smoking Status: Current every day smoker alcohol intake frequency: other Substance Use Type: does not use Exam Narrative Exam Narrative: GENERAL: [31 year old patient appears stated age. Well-developed patient, in mild distress. Obviously uncomfortable, wearing sunglasses, covering his face with a towel and rubbing his forehead HEAD: Atraumatic. Normocephalic. EYES: Pupils equal round and reactive. Extraocular motions intact. No scleral icterus. No injection or drainage. ENT: Nose without bleeding, purulent drainage. Throat without erythema, tonsillar hypertrophy or exudate. Airway patent. NECK: Trachea midline. Non tender CARDIOVASCULAR: Regular rate and rhythm without murmurs, gallops, or rubs. RESPIRATORY: Clear to auscultation. Breath sounds equal bilaterally. No wheezes, rales, or rhonchi. GASTROINTESTINAL: Abdomen soft, non-tender, nondistended. EXTREMITIES: No edema or joint tenderness. BACK: Nontender without deformity or crepitance. No flank tenderness. NEURO: AOx3. SKIN: No rash or erythema of visible areas NIH Stroke Scale 1a. LOC: Patient is alert and keenly responsive (0) 1b. LOC Questions: Patient answers both LOC questions accurately (0) 1c. LOC Commands: Patient performs both tasks correctly (0) 2. Best Gaze: Normal (0) 3. Visual: No visual loss (0) 4. Facial palsy: Normal symmetrical movements (0) 5. Motor arm: No drift (0) 6. Motor leg: No drift (0) 7. Limb ataxia: Absent (0) 8. Sensory: Normal (0) 9. Best language: No aphasia; normal (0) 10. Dysarthria: Normal (0) 11. Extinction and inattention: No abnormality (0) NIHSS: 0 Initial Vital Signs Initial Vital Signs: Vital Signs Temperature 97.9 F 07/25/21 17:27 Pulse Rate 93 H 07/25/21 17:27 Respiratory Rate 16 07/25/21 17:27 Blood Pressure 130/75 07/25/21 17:27 Pulse Oximetry 95 07/25/21 17:27 Course Course Course Narrative: Given the ongoing severe headache which is not necessarily following his typical pattern I elected to perform a head CT or early in his evaluation. Additionally, rather than starting with a typical headache cocktail I went straight to dilaudid which historically has been the most helpful for him. Orders Ordered: ED Orders 07/25/21 22:04 CT head/brain wo con Stat 07/25/21 22:15 Basic Metabolic Panel Stat Complete Blood Count AUTO DIFF Stat 07/26/21 00:40 CT angio head and neck Stat Sodium Chloride (Normal Saline 0.9%) 1,000 mls @ 1,000 mls/hr IV BOLUS ONE Stop: 07/26/21 02:29 Last Admin: 07/26/21 01:43 Dose: 1,000 mls/hr Documented by: SINTIA Discontinued Medications Haloperidol (Haloperidol 5 Mg/Ml Vial) 5 mg IV NOW ONE Stop: 07/26/21 01:31 Last Admin: 07/26/21 01:41 Dose: 5 mg Documented by: SINTIA Hydromorphone HCl (Hydromorphone 1 Mg Inj) 1 mg IV NOW ONE Stop: 07/25/21 22:04 Last Admin: 07/25/21 22:19 Dose: 1 mg Documented by: MERVAT Sodium Chloride (Normal Saline 0.9%) 1,000 mls @ 1,000 mls/hr IV BOLUS ONE Stop: 07/25/21 23:02 Last Infusion: 07/25/21 23:35 Dose: 0 mls/hr Documented by: Admin: 07/25/21 22:19 Dose: 1,000 mls/hr Documented by: MERVAT Acetaminophen (Ofirmev) 1,000 mg in 100 mls @ 400 mls/hr IV NOW ONE Stop: 07/26/21 00:54 Last Infusion: 07/26/21 01:26 Dose: 0 mls/hr Documented by: Admin: 07/26/21 00:55 Dose: 400 mls/hr Documented by: STEVE Ketorolac Tromethamine (Ketorolac 30 Mg/Ml Vial) 15 mg IV NOW ONE Stop: 07/26/21 01:31 Last Admin: 07/26/21 01:41 Dose: 15 mg Documented by: SINTIA Ondansetron HCl (Ondansetron 4 Mg/2 Ml Inj) 4 mg IV NOW ONE Stop: 07/25/21 22:04 Last Admin: 07/25/21 22:19 Dose: 4 mg Documented by: ATAYLOR Reevaluation(s) Reevaluation #1: Minimal relief after dilaudid, CT angiogram ordered Reevaluation #2: Patient feeling significant improvement after Haldol, requesting discharge Vital Signs Vital signs: Vital Signs - 8 hr 07/25/21 21:58 07/25/21 22:35 07/25/21 22:39 Pulse Rate 74 78 77 Respiratory Rate 16 Blood Pressure 135/98 H 140/82 Pulse Oximetry 93 96 95 07/25/21 23:00 07/25/21 23:30 07/25/21 23:31 Pulse Rate 72 77 79 Respiratory Rate 16 Blood Pressure 120/70 124/74 Pulse Oximetry 94 94 95 07/26/21 00:00 07/26/21 00:30 07/26/21 01:00 Pulse Rate 72 63 67 Respiratory Rate Blood Pressure 125/74 116/68 111/74 Pulse Oximetry 94 93 94 MDM - Headache Lab Data Result diagrams: 07/25/21 22:15 07/25/21 22:15 Labs: Lab Results 07/25/21 07/25/21 Range/Units 22:15 22:15 WBC 11.2 H (4.5-11.0) X10^3/uL RBC 4.58 (4.5-5.9) X10^6/uL Hgb 14.3 (13.5-17.5) g/dL Hct 41.9 (41-53) % MCV 91.5 (80-100) fL MCH 31.2 (26-34) PG MCHC 34.2 (30-36) % RDW 12.9 (11.6-14.8) % Plt Count 197 (150-400) X10^3/uL Neut % (Auto) 67.3 (50-75) % Lymph % (Auto) 22.3 L (25-40) % Bowie % (Auto) 9.6 (3-14) % Eos % (Auto) 0.4 L (2-4) % Baso % (Auto) 0.4 (0-2) % Neut # (Auto) 7600 H (1950-8990) /uL Lymph # (Auto) 2500 (2385-2726) /uL Bowie # (Auto) 1100 H (0-900) /uL Eos # (Auto) 0 (0-450) /uL Baso # (Auto) 0 (0-100) /uL Sodium 140 (137-145) mmol/L Potassium 3.9 (3.4-5.1) mmol/L Chloride 104 (98-107) mmol/L Carbon Dioxide 30 (22-32) mmol/L BUN 24 H (9-20) mg/dL Creatinine 0.76 (0.66-1.25) mg/dL Estimated GFR > 60.0 (>60) mL/min BUN/Creatinine Ratio 31.6 H (6-22) Glucose 96 (70-100) mg/dL Calcium 9.1 (8.4-10.2) mg/dL Imaging Data CT scan - head: Radiologist's Impression: NAP CTA Head/Neck: Radiologist's Impression: No aneurysms, abrupt cutoff, thrombosis or significant stenoses, normal head CT after IV contrast MDM Narrative Medical decision making narrative: Headache considerations include, but not limited to: Subarachnoid hemorrhage, but unlikely as patient denies sudden onset of pain, not worst of life, or neck pain Meningitis considered, but thought unlikely given lack of Brudzinski's, Kernig's sign, altered mental status or fever Giant cell arteritis considered, but thought unlikely given lack of unilateral findings, pain in oriental orthodox, vision change HTN Emergency considered, but thought unlikely given normal vitals Other serious diagnoses considered unlikely given lack of red flag findings such as sudden onset, increasing frequency, immunocompromise, systemic signs (fever, chills, stiff neck, or rash), focal neurologic findings, trauma, blood thinners, etc. Discharge Plan Departure Patient Disposition: Home Clinical Impression: Atypical migraine Instructions: DI for Headache, DI for Migraine Activity Restrictions/Additional Instructions: *You have been diagnosed with [atypical migraine, very reassuring physical exam, labs, CT scans. *What to do: *Take medications as directed including [id number] Tylenol and Motrin *Follow up with your primary care provider in 2-3 days, call for an appointment. Let them know you were seen in the Emergency Department and that we ask that you be seen in follow up *Return to ER if you should have any new, worsening or concerning symptoms, such as [ fever > 101F, neck pain or stiffness, vomiting, confusion, seizure, focal weakness, vision change, speech deficit or other concerning symptoms ] Prescriptions: No Action ondansetron 4 mg tablet,disintegrating 4 mg PO Q8H PRN (Reason: nausea and vomiting) Qty: 7 RF: 0
[2021-07-26] MEDS: HALOPERIDOL 5 MG/ML VIAL IV (01:41)
[2021-07-26] MEDS: KETOROLAC 30 MG/ML VIAL 15 MG IV (01:41)
[2021-07-26] MEDS: SODIUM CHLORIDE 0.9% 1,000 ML 1000 ML IV (01:43)
[2021-07-26 02:40] VITALS: BP 102/58; PULSE 61; RESP 16; O2SAT 96
--- NOTE | 2021-07-31 01:18 | PC.NURSE ---
late entry: pt received 1000ml of normal saline completed at 0250 on 07/26/21
== END 2021-07-26 02:48 | disposition home or self-care (01) ==
PROVIDERS: Emergency Provider Emergency Medicine
DX: G43.009 Migraine without aura, not intractable, without status migrainosus (principal); R11.0 Nausea
CPT/HCPCS: 36415; 70450; 70496; 70498; 80048; 85025; 96361; 96365; 96375; 99284; J0131; J1170; J1630; J1885; J2405; Q9967